=== PATIENT | male | born 1970 | race Caucasian/White ===

== ENCOUNTER 2023-04-24 03:18 | Emergency (ER) | payer BC ==
[~2023-04-24] VITALS: Ht 195.5 cm; Wt 122.5 kg
[2023-04-24] MEDS ORDERED: PREDNISONE20 M1 PO (03:37)
[2023-04-24] MEDS ORDERED: ACYCLOVIR800 MG PO (03:37)
== END 2023-04-24 04:07 | disposition home or self-care (01) ==
LOC: ED 03:18
DX: B02.9 Zoster without complications (principal)